=== PATIENT | male | born 1940 | race Caucasian/White ===

== ENCOUNTER 2017-01-05 18:49 | Emergency (ER) | payer MEDICARE, BC ==
[~2017-01-05] VITALS: Ht 177.8 cm; Wt 122.7 kg
[2017-01-05 18:52] VITALS: TEMP 97
[2017-01-05 21:31] VITALS: BP 147/81; PULSE 74
== END 2017-01-05 21:31 | disposition home or self-care (01) ==
LOC: COL.ER 18:49
DX: N40.1 Benign prostatic hyperplasia with lower urinary tract symptoms (principal); R33.8 Other retention of urine; N13.8 Other obstructive and reflux uropathy
CPT/HCPCS: C1769; J0696

== ENCOUNTER → 2017-01-09 | Outpatient (CLI) | payer MEDICARE, BC ==
[~2017-01-09] MED LIST: ALEVE 220MG220 MG PO; CIPRO 500MG TA500 MG PO
== END ==
LOC: COL.RAD 13:12
DX: N40.1 Benign prostatic hyperplasia with lower urinary tract symptoms (principal); R33.8 Other retention of urine

== ENCOUNTER 2017-01-10 05:31 | Day surgery (SDC) | payer MEDICARE, BC ==
[~2017-01-10] VITALS: Ht 177.8 cm; Wt 93.0 kg
[2017-01-10] VITALS (11 sets, daily range): BP systolic 111–142; BP diastolic 57–85; PULSE 59–92; TEMP 97.7–98.3
[2017-01-10] MEDS ORDERED: ALEVE 220MG220 MG PO (05:54)
[2017-01-10] MEDS ORDERED: CIPRO 500MG TA500 MG PO (05:54)
[2017-01-11 01:30] VITALS: BP 117/64; PULSE 72; TEMP 98.5
[2017-01-11 06:04] VITALS: BP 124/63; PULSE 73; TEMP 97.9
[2017-01-11 10:01] VITALS: BP 122/60; PULSE 82; TEMP 97.6
[2017-01-11 13:20] VITALS: BP 137/71; PULSE 73; TEMP 96.8
== END 2017-01-11 15:20 | disposition home or self-care (01) ==
LOC: SDCO 05:31 → SURG 12:24 → SDCO 01-11 15:20
DX: N40.1 Benign prostatic hyperplasia with lower urinary tract symptoms (principal); N32.0 Bladder-neck obstruction; R33.8 Other retention of urine; Z87.891 Personal history of nicotine dependence
CPT/HCPCS: OP; J0690; J1100; J1170; J2370; J2405; J2704; J3010; J7120